=== PATIENT | male | born 1980 | race Caucasian/White ===

== ENCOUNTER 2018-01-12 00:14 | Emergency (ER) | payer SELFPAY ==
[~2018-01-12] VITALS: Ht 175.3 cm; Wt 109.1 kg
[2018-01-12 00:21] VITALS: TEMP 98.5
[2018-01-12] MEDS ORDERED: CEPHALEXIN500 M1 PO (02:26)
[2018-01-12] MEDS ORDERED: NORCO 325 MG-51 TAB PO (02:26)
[2018-01-12 04:14] VITALS: BP 133/95; PULSE 87
== END 2018-01-12 04:16 | disposition home or self-care (01) ==
LOC: COL.ER 00:14
DX: S09.90XA Unspecified injury of head, initial encounter (principal); S01.01XA Laceration without foreign body of scalp, initial encounter; S14.109A Unspecified injury at unspecified level of cervical spinal cord, initial encounter; Z23 Encounter for immunization; W20.8XXA Other cause of strike by thrown, projected or falling object, initial encounter; Y92.89 Other specified places as the place of occurrence of the external cause

== ENCOUNTER 2018-01-22 11:33 | Emergency (ER) | payer OTHER ==
[~2018-01-22 11:33] MED LIST: CEPHALEXIN500 M1 PO; NORCO 325 MG-51 TAB PO
[2018-01-22 11:37] VITALS: BP 127/82; PULSE 77; TEMP 99.1
== END 2018-01-22 11:42 | disposition home or self-care (01) ==
LOC: COL.ER 11:33
DX: S01.01XD Laceration without foreign body of scalp, subsequent encounter (principal); X58.XXXD Exposure to other specified factors, subsequent encounter